=== PATIENT | male | born 1985 | race American Indian/Alaskan Native ===

== ENCOUNTER 2018-09-29 18:49 | Emergency (ER) | payer OTHER ==
--- NOTE | 2018-09-29 19:45 | Emergency Department Report ---
Blank Doc - Documentation Documentation: This is a 32-year-old male that presents with left hip pain x1 week. Denies any injuries. This initial assessment diagnostic orders/clinical plan/treatment(s) is/are subject to change based on patient's health status, clinical progression and re- assessment by fellow clinical providers in the ED. Further treatment and workup at subsequent clinical providers discretion. Patient/guardians urged not to elope from ED s their condition may be serious if not clinically assessed and managed. Initial orders include: 1-Patient sent to [facility] for further evaluation and treatment 2-xray
[2018-09-29 19:47] VITALS: BP 149/80
--- NOTE | 2018-09-29 20:27 | XRay Report ---
FINAL REPORT EXAM: XR HIP 2-3V LT HISTORY: left hip pain TECHNIQUE: AP view of the pelvis and a single coned views of the left hip PRIORS: None. FINDINGS: There is a 1.4 cm round well-circumscribed lucency in the left superior lateral acetabulum with surro unding sclerosis. There is lateral acetabular osteophyte formation. The left hip joint is normally al igned. On the right there is superior acetabular sclerosis and lateral acetabular osteophyte formatio n. At L5-S1 there is severe loss of disc height, endplate sclerosis, vacuum disc and osteophyte forma tion. The bones are normally mineralized. SI joints appear normal. There is no evidence of acute fracture. The soft tissues are unremarkable. IMPRESSION: 1. Changes in the left hip most likely represent osteoarthrosis with a subchondral degenerative cyst. Recommend further evaluation with MRI. 2. Early degenerative changes of the right hip.
--- NOTE | 2018-09-30 00:27 | Emergency Department Report ---
ED General Adult HPI - General Chief complaint: Extremity Injury, Lower Stated complaint: LEFT HIP PAIN Time Seen by Provider: 09/29/18 19:44 Source: patient Mode of arrival: Ambulatory Limitations: No Limitations - History of Present Illness Initial comments: 2-year-old obese -Polish male to emergency Department complaining of left hip pain worsening worsening and off-and-on fashion for the last 1 week. 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 Reports no known trauma. No numbness or tingling. No loss of bowel or bladder, no urinary incontinence, no urinary retention. Reports no saddle paresthesia. He reports no hematuria or dysuria. Reports no penile discharge. Reports no back pain or chest pain. For pain to his knees. Reports no abdominal discomfort to his head or neck. No fevers, chills, sweats. Radiation: non-radiation Severity scale (0 -10): 4 Quality: aching Consistency: constant Improves with: none Worsens with: none Associated Symptoms: denies: confusion, chest pain, cough, loss of appetite, malaise, nausea/vomiting, shortness of breath, syncope, weakness Treatments Prior to Arrival: none - Related Data Previous Rx's Medication Instructions Recorded Last Taken Type Ketorolac [Toradol] 10 mg PO Q6H PRN #15 tablet 09/30/18 Unknown Rx Allergies Allergy/AdvReac Type Severity Reaction Status Date / Time No Known Allergies Allergy Unverified 09/29/18 18:54 ED Review of Systems ROS: Stated complaint: LEFT HIP PAIN Other details as noted in HPI Constitutional: denies: chills, fever Eyes: denies: eye pain, eye discharge, vision change ENT: denies: ear pain, throat pain Respiratory: denies: cough, shortness of breath, wheezing Cardiovascular: denies: chest pain, palpitations Endocrine: no symptoms reported Gastrointestinal: denies: abdominal pain, nausea, diarrhea Genitourinary: denies: urgency, dysuria Musculoskeletal: arthralgia. denies: back pain, joint swelling Skin: denies: rash, lesions Neurological: denies: headache, weakness, paresthesias Psychiatric: denies: anxiety, depression Hematological/Lymphatic: denies: easy bleeding, easy bruising ED Past Medical Hx - Past Medical History Previous Medical History?: No - Surgical History Past Surgical History?: No - Social History Smoking Status: Current Every Day Smoker Substance Use Type: None - Medications Home Medications: Home Medications Medication Instructions Recorded Confirmed Last Taken Type Ketorolac [Toradol] 10 mg PO Q6H PRN #15 tablet 09/30/18 Unknown Rx ED Physical Exam - General Limitations: No Limitations General appearance: alert, in no apparent distress - Head Head exam: Present: atraumatic, normocephalic - Eye Eye exam: Present: normal appearance - ENT ENT exam: Present: mucous membranes moist - Neck Neck exam: Present: normal inspection - Respiratory Respiratory exam: Present: normal lung sounds bilaterally. Absent: respiratory distress - Cardiovascular Cardiovascular Exam: Present: regular rate, normal rhythm. Absent: systolic murmur, diastolic murmur, rubs, gallop - GI/Abdominal GI/Abdominal exam: Present: soft, normal bowel sounds - Rectal Rectal exam: Present: deferred - Extremities Exam Extremities exam: Present: normal inspection, full ROM, tenderness, normal capillary refill (pain to the left hip with palpation. Full range of motion. No palpitations.). Absent: pedal edema - Back Exam Back exam: Present: normal inspection. Absent: CVA tenderness (R), CVA tenderness (L), muscle spasm, paraspinal tenderness - Neurological Exam Neurological exam: Present: alert, oriented X3, CN II-XII intact, normal gait - Psychiatric Psychiatric exam: Present: normal affect, normal mood - Skin Skin exam: Present: warm, dry, intact, normal color. Absent: rash ED Course Vital Signs 09/29/18 09/29/18 19:36 19:44 Temperature 97.9 F 97.9 F Pulse Rate 74 72 Respiratory 20 18 Rate Blood Pressure 149/80 149/80 O2 Sat by Pulse 97 98 Oximetry Critical care attestation.: If time is entered above; I have spent that time in minutes in the direct care of this critically ill patient, excluding procedure time. ED Disposition Clinical Impression: Hip arthritis Disposition: - TO HOME OR SELFCARE Is pt being admited?: No Does the pt Need Aspirin: No Condition: Stable Instructions: Osteoarthritis (ED), Naproxen (By mouth) Referrals: ROHIT WHITMORE MD [Primary Care Provider] - 3-5 Days [facility] [Provider Group] - 3-5 Days
== END 2018-09-30 00:30 | disposition home or self-care (01) ==
LOC: ED 18:49
DX: M16.12 Unilateral primary osteoarthritis, left hip (principal); F17.200 Nicotine dependence, unspecified, uncomplicated

== ENCOUNTER 2018-10-22 20:22 | Emergency (ER) | payer OTHER ==
[2018-10-22] MEDS ORDERED: TORADOL IM ONE (23:54)
--- NOTE | 2018-10-23 00:14 | Emergency Department Report ---
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 Has not taken NSAIDs for pain has not seen PCP for pain presents tonight as he missed work Onset/Timin -: month(s) Location: upper extremity, lower extremity Radiation: non-radiation Severity scale (0 -10): 3 Quality: aching Consistency: intermittent Improves with: rest Worsens with: movement, other (peforming job duties ) Associated Symptoms: denies other symptoms Treatments Prior to Arrival: none - Related Data Previous Rx's Medication Instructions Recorded Last Taken Type Ketorolac [Toradol] 10 mg PO Q6H PRN #15 tablet 09/30/18 Unknown Rx Menthol/Camphor [[place] 1 applicatio TP QID PRN #1 tube 10/23/18 Unknown Rx Ointment] Naproxen [Naprosyn] 500 mg PO BID PRN #30 tablet 10/23/18 Unknown Rx Allergies Allergy/AdvReac Type Severity Reaction Status Date / Time No Known Allergies Allergy Unverified 09/29/18 18:54 ED Review of Systems ROS: Stated complaint: RT SHOULDER PAIN/LEFT FOOT PAIN Other details as noted in HPI Constitutional: denies: chills, fever Eyes: denies: eye pain, eye discharge, vision change ENT: denies: ear pain, throat pain Respiratory: denies: cough, shortness of breath, wheezing Cardiovascular: as per HPI Endocrine: no symptoms reported Gastrointestinal: denies: abdominal pain, nausea, diarrhea Genitourinary: denies: urgency, dysuria Musculoskeletal: arthralgia, other (right lateral shoulder pain , left plantar foot pain ). denies: back pain, joint swelling Skin: denies: rash, lesions Neurological: denies: headache, weakness, paresthesias Psychiatric: denies: anxiety, depression Hematological/Lymphatic: denies: easy bleeding, easy bruising ED Past Medical Hx - Past Medical History Previous Medical History?: No - Surgical History Past Surgical History?: No - Social History Smoking Status: Light Tobacco Smoker - Medications Home Medications: Home Medications Medication Instructions Recorded Confirmed Last Taken Type Ketorolac [Toradol] 10 mg PO Q6H PRN #15 tablet 09/30/18 Unknown Rx Menthol/Camphor [[place] 1 applicatio TP QID PRN #1 tube 10/23/18 Unknown Rx Ointment] Naproxen [Naprosyn] 500 mg PO BID PRN #30 tablet 10/23/18 Unknown Rx ED Physical Exam - General Limitations: No Limitations General appearance: alert, in no apparent distress - Head Head exam: Present: atraumatic, normocephalic - Eye Eye exam: Present: normal appearance, PERRL, EOMI Pupils: Present: normal accommodation - ENT ENT exam: Present: mucous membranes moist - Neck Neck exam: Present: normal inspection - Respiratory Respiratory exam: Present: normal lung sounds bilaterally. Absent: respiratory distress - Cardiovascular Cardiovascular Exam: Present: regular rate, normal rhythm. Absent: systolic murmur, diastolic murmur, rubs, gallop - GI/Abdominal GI/Abdominal exam: Present: soft, normal bowel sounds - Rectal Rectal exam: Present: deferred - Extremities Exam Extremities exam: Present: normal inspection, full ROM, tenderness (right lateral shoulder muscular pain to deep palpation), normal capillary refill. Absent: pedal edema, joint swelling, calf tenderness - Expanded Upper Extremity Exam Right Shoulder Exam: Present: full ROM, tenderness. Absent: swelling, abrasion, laceration, deformity, crepidus, dislocation, erythema, tenderness over AC joint Upper Arm exam: Present: normal inspection, full ROM Elbow exam: Present: normal inspection, full ROM Forearm Wrist exam: Present: normal inspection, full ROM Hand Wrist exam: Present: normal inspection, full ROM Neuro motor exam: Present: wrist extension intact, thumb opposition intact, thumb IP flexion intact, thumb adduction intact, fingers 2-5 abduction intact Neurosensory exam: Present: 2-point discrimination, radial nerve intact, ulnar nerve intact, median nerve intact Vascular: Present: normal capillary refill, radial pulse, brachial pulse, ulnar pulse. Absent: vascular compromise, pulse deficit radial art, pulse deficit ulnar art, pulse deficit brachial art - Expanded Lower Extremity Exam Left Foot/Toe exam: Present: full ROM, tenderness (plantar tenderness calus no er ythema no deformity no swelling ). Absent: swelling, abrasion, laceration, ecchymosis, deformity, crepidus, dislocation, erythema, amputation, puncture wound, foreign body, calcaneal tenderness, tenderness at base of 5th metatarsal, nail avulsion, subungual hematoma Neuro vascular tendon exam: Present: no vascular compromise. Absent: pulse deficit, abnormal cap refill, motor deficit, sensory deficit, tendon deficit, extremity cold to touch, abnormal 2-point discrimination, foot drop Gait: Positive: observed and normal - Back Exam Back exam: Present: normal inspection, full ROM. Absent: tenderness, CVA tenderness (R), CVA tenderness (L), muscle spasm, paraspinal tenderness, vertebral tenderness, rash noted - Neurological Exam Neurological exam: Present: alert, oriented X3, CN II-XII intact, normal gait, reflexes normal. Absent: motor sensory deficit - Psychiatric Psychiatric exam: Present: normal affect, normal mood - Skin Skin exam: Present: warm, dry, intact, normal color. Absent: rash ED Course Vital Signs 10/22/18 20:34 Temperature 98.6 F Pulse Rate 90 Respiratory 16 Rate Blood Pressure 156/75 [Left] O2 Sat by Pulse 98 Oximetry ED Medical Decision Making - Medical Decision Making this is a shoulder and foot strain plan nsaids, analgesic balm follow up with pcp in 2-3 days return to ed if symptoms worsen, pt verbalized agreement and understanding of discharge plan. pt is currently a/o x 3 ambulatory with steady gait , to home via pov in stable condition at this time. Critical care attestation.: If time is entered above; I have spent that time in minutes in the direct care of this critically ill patient, excluding procedure time. ED Disposition Clinical Impression: Callus of foot Right shoulder strain Qualifiers: Encounter type: initial encounter Qualified Code(s): S46.911A - Strain of unspecified muscle, fascia and tendon at shoulder and upper arm level, right arm, initial encounter Disposition: TO HOME OR SELFCARE Is pt being admited?: No Does the pt Need Aspirin: No Condition: Stable Instructions: Shoulder Sprain (ED), Arthralgia (ED) Prescriptions: Naproxen [Naprosyn] 500 mg PO BID PRN #30 tablet PRN Reason: pain Menthol/Camphor [[place] Ointment] 1 applicatio TP QID PRN #1 tube PRN Reason: pain Referrals: [facility] [Outside] - 3-5 Days ERIC VO DPM [Staff Physician] - 3-5 Days Forms: Work/School Release Form(ED) Time of Disposition: 00:22
[2018-10-23 01:08] VITALS: BP 139/82
== END 2018-10-23 01:11 | disposition home or self-care (01) ==
LOC: ED 20:22
DX: S46.911A Strain of unspecified muscle, fascia and tendon at shoulder and upper arm level, right arm, initial encounter (principal); M25.775 Osteophyte, left foot; F17.200 Nicotine dependence, unspecified, uncomplicated; X58.XXXA Exposure to other specified factors, initial encounter; Y93.89 Activity, other specified; Y92.89 Other specified places as the place of occurrence of the external cause; Y99.8 Other external cause status
CPT/HCPCS: 96372; 99282; J1885

== ENCOUNTER 2019-01-30 00:24 | Emergency (ER) | payer OTHER ==
--- NOTE | 2019-01-30 01:14 | XRay Report ---
PROCEDURE: XR SHOULDER 2+V LT TECHNIQUE: Left shoulder radiographs, three views. HISTORY: left shoulder pain COMPARISONS: None . FINDINGS: Fracture (s) and/or Dislocation(s): None . Joint space(s): Normal . Soft tissues: Normal . Bone mineralization: Normal . Foreign bodies: None . IMPRESSION: Normal Examination . This document is electronically signed by María Qureshi DO., January 30 2019 01:13:13 AM ET
[2019-01-30] MEDS ORDERED: NORCO 5/325 PO STA (03:54)
--- NOTE | 2019-01-30 03:58 | Emergency Department Report ---
Upper Extremity - HPI Chief Complaint: Shoulder Injury Stated Complaint: LEFT SHOULDER PAIN Time Seen by Provider: 01/30/19 02:41 Upper Extremity: Left Shoulder Occurred When: 2 Days Mechanism: Unsure Severity: moderate Symptoms: Yes Pain with Movement, No Deformity, No Limited Range of Movement, No Swelling, No Bruising/Ecchymosis, No Laceration or Abrasion Other History: 53-year-old male who is most department complaining of spontaneous left shoulder pain today. States that he was doing something with his left arm, felt a pop followed by a burning in the company with pain which is continued bleeding since the onset. Reports no numbness or tingling or swelling. 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 ED Review of Systems ROS: Stated complaint: LEFT SHOULDER PAIN Other details as noted in HPI Constitutional: denies: chills, fever Eyes: denies: eye pain, eye discharge, vision change ENT: denies: ear pain, throat pain Respiratory: denies: cough, shortness of breath, wheezing Cardiovascular: denies: chest pain, palpitations Endocrine: no symptoms reported Gastrointestinal: denies: abdominal pain, nausea, diarrhea Genitourinary: denies: urgency, dysuria Musculoskeletal: denies: back pain, joint swelling, arthralgia Skin: denies: rash, lesions Neurological: denies: headache, weakness, paresthesias Psychiatric: denies: anxiety, depression Hematological/Lymphatic: denies: easy bleeding, easy bruising ED Past Medical Hx - Past Medical History Previous Medical History?: No - Surgical History Past Surgical History?: No - Social History Smoking Status: Current Every Day Smoker Substance Use Type: None - Medications Home Medications: Home Medications Medication Instructions Recorded Confirmed Last Taken Type Ketorolac [Toradol] 10 mg PO Q6H PRN #15 tablet 09/30/18 Unknown Rx Menthol/Camphor [[place] 1 applicatio TP QID PRN #1 tube 10/23/18 Unknown Rx Ointment] Naproxen [Naprosyn] 500 mg PO BID PRN #30 tablet 10/23/18 Unknown Rx Ketorolac [Toradol] 10 mg PO Q6H PRN #15 tablet 01/30/19 Unknown Rx Upper Extremity Exam - Exam General: Vital signs noted. No distress. Alert and acting appropriately. Head and Torso: No HEENT Abnormality, No Neck Tenderness, No Chest/Lungs Abnormality, No Abdominal Tenderness, No Back Tenderness Shoulder Exam: Yes Shoulder Tenderness (full range of motion. Some discomfort with Fong test. No pain with O'Rafy's test of Mnire's test. Normal strength. No sulcus sign. 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 Normal supination and pronation. Full flexion and extension, abduction and adduction), Yes Normal Range of Motion in Shoulder, No Clavicle Tenderness, No Shoulder Deformity, No AC Joint Tenderness Arm Exam: No Arm/Humerus Tenderness, No Arm Deformity Elbow: No Elbow Tenderness, No Normal Range of Motion in Elbow, No Elbow Deformity Forearm: No Forearm Tenderness, No Forearm Deformity, No Pain with Pronation, No Pain with Supination Wrist: Yes Normal ROM in Wrist, No Wrist Tenderness, No Wrist Deformity, No Snuffbox Tenderness, No Pain with Axial Thumb Compression Hand: Yes Normal ROM in Digit(s), No Hand Tenderness, No Hand Deformity, No Digit Tenderness, No Digit(s) Deformity, No Tendon Dysfunction CMS Exam: No Broken Skin, No Normal Distal Pulses, No Normal Capillary Refill, No Normal Distal Sensation ED Course Vital Signs 01/30/19 00:27 Temperature 98.1 F Pulse Rate 107 H Respiratory 18 Rate Blood Pressure 169/100 O2 Sat by Pulse 98 Oximetry ED Medical Decision Making - Medical Decision Making 33-year-old Brazilian male spontaneous left shoulder pain after movement. X-rays are not are negative pain to be more associated with soft tissue injury. Discussed patient possibility of having a rotator cuff injury versus a labral injury versus tendon type strain. X-ray was clear. Advised patient of the management with ice and comfort therapy as well as a sling Critical care attestation.: If time is entered above; I have spent that time in minutes in the direct care of this critically ill patient, excluding procedure time. ED Disposition Clinical Impression: Shoulder pain, left Disposition: DC-01 TO HOME OR SELFCARE Is pt being admited?: No Does the pt Need Aspirin: No Condition: Stable Instructions: Shoulder Sprain (ED), Rotator Cuff Injury (ED), Rotator Cuff Tendinitis (ED), Arthralgia (ED), Magnetic Resonance Imaging (ED) Referrals: AR SEGOVIA MD [Primary Care Provider] - 3-5 Days
[2019-01-30 04:30] VITALS: BP 162/93
== END 2019-01-30 04:35 | disposition home or self-care (01) ==
LOC: ED 00:24
DX: M25.512 Pain in left shoulder (principal); F17.200 Nicotine dependence, unspecified, uncomplicated

== ENCOUNTER 2019-03-17 17:31 | Emergency (ER) | payer OTHER ==
[2019-03-17 18:06] VITALS: BP 120/75
--- NOTE | 2019-03-17 18:58 | XRay Report ---
CHEST 2 VIEWS INDICATION / CLINICAL INFORMATION: SOB,cough. COMPARISON: None available. FINDINGS: SUPPORT DEVICES: None. HEART / MEDIASTINUM: No significant abnormality. LUNGS / PLEURA: No significant pulmonary or pleural abnormality. No pneumothorax. ADDITIONAL FINDINGS: No significant additional findings. IMPRESSION: 1. No acute findings. Signer Name: Kamran Garcia MD Signed: 03/17/2019 6:53 PM Workstation Name: [id number]
--- NOTE | 2019-03-17 19:41 | Emergency Department Report ---
- General Chief Complaint: Upper Respiratory Infection Stated Complaint: YOLANDE/CHEST PAIN Time Seen by Provider: 03/17/19 18:55 Source: patient Mode of arrival: Ambulatory Limitations: No Limitations - History of Present Illness Initial Comments: Patient is a 33-year-old male presents the emergency room with complaints of a cough that began 2 days ago. He has associated shortness of breath, sneezing, sinus pressure. He states that he works around [employer] and [employer] and does not wear mask. He denies any fever, sore throat, earache. Denies any sick contacts. He has not taken anything for his symptoms. Patient denies any past medical history allergies medications. - Related Data Previous Rx's Medication Instructions Recorded Last Taken Type Ketorolac [Toradol] 10 mg PO Q6H PRN #15 tablet 09/30/18 Unknown Rx Menthol/Camphor [[place]e [place] 1 applicatio TP QID PRN #1 tube 10/23/18 Unknown Rx Ointment] Naproxen [Naprosyn] 500 mg PO BID PRN #30 tablet 10/23/18 Unknown Rx Ketorolac [Toradol] 10 mg PO Q6H PRN #15 tablet 01/30/19 Unknown Rx Amoxicillin/Potassium Clav 1 each PO BID 7 Days #14 tablet 03/17/19 Unknown Rx [Augmentin 875-125 Tablet] Benzonatate [Tessalon Perles] 100 mg PO Q8HR PRN #14 capsule 03/17/19 Unknown Rx Cetirizine HCl [ZyrTEC 10mg cap] 10 mg PO DAILY #20 capsule 03/17/19 Unknown Rx Allergies Allergy/AdvReac Type Severity Reaction Status Date / Time No Known Allergies Allergy Verified 03/17/19 18:00 ED Review of Systems ROS: Stated complaint: YOLANDE/CHEST PAIN Other details as noted in HPI Comment: All other systems reviewed and negative ED Past Medical Hx - Past Medical History Previous Medical History?: No - Surgical History Past Surgical History?: No - Social History Smoking Status: Never Smoker Substance Use Type: Alcohol - Medications Home Medications: Home Medications Medication Instructions Recorded Confirmed Last Taken Type Ketorolac [Toradol] 10 mg PO Q6H PRN #15 tablet 09/30/18 Unknown Rx Menthol/Camphor [[place]e [place] 1 applicatio TP QID PRN #1 tube 10/23/18 Unknown Rx Ointment] Naproxen [Naprosyn] 500 mg PO BID PRN #30 tablet 10/23/18 Unknown Rx Ketorolac [Toradol] 10 mg PO Q6H PRN #15 tablet 01/30/19 Unknown Rx Amoxicillin/Potassium Clav 1 each PO BID 7 Days #14 tablet 03/17/19 Unknown Rx [Augmentin 875-125 Tablet] Benzonatate [Tessalon Perles] 100 mg PO Q8HR PRN #14 capsule 03/17/19 Unknown Rx Cetirizine HCl [ZyrTEC 10mg cap] 10 mg PO DAILY #20 capsule 03/17/19 Unknown Rx ED Physical Exam - General Limitations: No Limitations General appearance: alert, in no apparent distress - Head Head exam: Present: atraumatic, normocephalic - Eye Eye exam: Present: normal appearance, PERRL. Absent: periorbital swelling, periorbital tenderness - ENT ENT exam: Present: normal orophraynx, mucous membranes moist, other (erythematous nasal turbinates with some purulent nasal drainage, frontal sinus TTP, no maxillary TTP) - Respiratory Respiratory exam: Present: normal lung sounds bilaterally. Absent: respiratory distress, wheezes, rales, rhonchi, stridor, chest wall tenderness, accessory muscle use, decreased breath sounds, prolonged expiratory - Cardiovascular Cardiovascular Exam: Present: regular rate, normal rhythm, normal heart sounds. Absent: systolic murmur, diastolic murmur, rubs, gallop - Neurological Exam Neurological exam: Present: alert, oriented X3 - Psychiatric Psychiatric exam: Present: normal affect, normal mood - Skin Skin exam: Present: warm, dry, intact ED Course Vital Signs 03/17/19 18:00 Temperature 97.9 F Pulse Rate 75 Respiratory 18 Rate Blood Pressure 120/75 O2 Sat by Pulse 98 Oximetry ED Medical Decision Making - Radiology Data Radiology results: report reviewed CHEST 2 VIEWS INDICATION / CLINICAL INFORMATION: SOB,cough. COMPARISON: None available. FINDINGS: SUPPORT DEVICES: None. HEART / MEDIASTINUM: No significant abnormality. LUNGS / PLEURA: No significant pulmonary or pleural abnormality. No pneumothorax. ADDITIONAL FINDINGS: No significant additional findings. IMPRESSION: 1. No acute findings. Signer Name: Kamran Gracia MD Signed: 03/17/2019 6:53 PM Workstation Name: [id number] Transcribed By: Dictated By: Kamran Garcia MD Electronically Authenticated By: Kamran Garcia MD Signed Date/Time: 03/17/19 7957 - Medical Decision Making Patient is a 33-year-old male presents the emergency room with complaints of a cough that began 2 days ago. He has associated shortness of breath, sneezing, sinus pressure. He states that he works around [employer] and [employer] and does not wear mask. He denies any fever, sore throat, earache. Denies any sick con tacts. He has not taken anything for his symptoms. Patient denies any past medical history allergies medications. vitals are normal. on exam: erythematous nasal turbinates with some purulent nasal drainage, frontal sinus TTP, no maxillary TTP. examination consistent with sinusitis. CXR with no acute process. pt given prescription for augmentin, tessalon perles, and zyrtec. advised to please take medication as prescribed. Drink plenty of fluids. Please wear a mask while working with chemicals. Follow up with a primary care doctor in the next 2-3 days. Return to the emergency room for any new or worsening symptoms. - Differential Diagnosis URI, PNA, viral syndrome, sinusitis Critical care attestation.: If time is entered above; I have spent that time in minutes in the direct care of this critically ill patient, excluding procedure time. ED Disposition Clinical Impression: Cough, SOB (shortness of breath) Sinusitis Qualifiers: Sinusitis location: frontal Chronicity: acute Recurrence: non-recurrent Qualified Code(s): J01.10 - Acute frontal sinusitis, unspecified Disposition: DC-01 TO HOME OR SELFCARE Is pt being admited?: No Does the pt Need Aspirin: No Condition: Stable Instructions: Sinusitis (ED) Additional Instructions: Take medication as prescribed. Drink plenty of fluids. Please wear a mask while working with chemicals. Follow up with a primary care doctor in the next 2-3 days. Return to the emergency room for any new or worsening symptoms. Prescriptions: Amoxicillin/Potassium Clav [Augmentin 875-125 Tablet] 1 each PO BID 7 Days #14 tablet Benzonatate [Tessalon Perles] 100 mg PO Q8HR PRN #14 capsule PRN Reason: Cough Cetirizine HCl [ZyrTEC 10mg cap] 10 mg PO DAILY #20 capsule Referrals: [facility] [Provider Group] - 2-3 Days [facility] [Outside] - 2-3 Days [facility] [Outside] - 2-3 Days Forms: Work/School Release Form(ED) Time of Disposition: 19:39 Print Language: TAMAZIGHT
== END 2019-03-17 19:55 | disposition home or self-care (01) ==
LOC: ED 17:31
DX: J01.10 Acute frontal sinusitis, unspecified (principal)
CPT/HCPCS: 71046; 99283